=== PATIENT | male | born 2000 | race Caucasian/White ===

== ENCOUNTER 2019-05-08 10:32 | Emergency (ER) | payer OTHER ==
[2019-05-08 11:01] LABS: BASOPHILS # (AUTO) 0.1 10^3/uL (0.0-0.1); BASOPHILS % (AUTO) 0.7 %; EOSINOPHILS % (AUTO) 0.3 %; HGB - HEMOGLOBIN 15.3 g/dL (14.0-18.0); LYMPHOCYTES # (AUTO) 1.5 10^3/uL (1.5-3.5); LYMPHOCYTES % (AUTO) 21.9 %; MEAN CORPUSCULAR HEMOGLOBIN 28.9 pg (27.0-31.0); MEAN CORPUSCULAR VOLUME 87.5 fL (80.0-94.0); MEAN PLATELET VOLUME 9.7 fL (7.4-11.4); MONOCYTES # (AUTO) 0.4 10^3/uL (0.0-1.0); MONOCYTES % (AUTO) 6.3 %; NEUTROPHILS # (AUTO) 4.7 10^3/uL (1.5-6.6); NEUTROPHILS % (AUTO) 70.5 %; PLT - PLATELET COUNT 232 10^3/uL (130-450); RED CELL DISTRIBUTION WIDTH 13.3 % (12.0-15.0); WHITE BLOOD COUNT 6.7 x10^3/uL (4.8-10.8)
[2019-05-08 11:07] LABS: BILIRUBIN,URINE NEGATIVE (NEGATIVE); GLUCOSE, URINE (UA) NEGATIVE (NEGATIVE); KETONES,URINE (UA) NEGATIVE (NEGATIVE); LEUKOCYTE ESTERASE, URINE NEGATIVE (NEGATIVE); NITRITE,URINE NEGATIVE (NEGATIVE); OCCULT BLOOD,URINE MODERATE (NEGATIVE); PH,URINE 7.5 PH (5.0-7.5); PROTEIN,URINE NEGATIVE (NEGATIVE); UROBILINOGEN,URINE 0.2 (NORMAL) E.U./dL (NORMAL)
[2019-05-08 11:09] LABS: CLARITY,URINE CLEAR (CLEAR)
[2019-05-08 11:14] LABS: ALBUMIN 4.8 g/dL (3.2-5.5); ALBUMIN/GLOBULIN RATIO 1.8 (1.0-2.2); BILIRUBIN,TOTAL 1.1 mg/dL (0.2-1.0); CALCIUM 9.6 mg/dL (8.5-10.3); CREATININE 0.9 mg/dL (0.6-1.2); TOTAL PROTEIN 7.4 g/dL (6.7-8.2)
[2019-05-08 11:28] LABS: BACTERIA,URINE None Seen /HPF (None Seen); SQUAMOUS EPITHELIAL CELL,UR NONE SEEN (<= Few)
--- NOTE | 2019-05-08 11:32 | ED Physician Documentation ---
PD HPI ABD PAIN - Stated complaint Stated Complaint: BACK/ABD PX - Chief complaint Chief Complaint: Abd Pain - History obtained from History obtained from: Patient - History of Present Illness Timing - onset: Today (Sudden onset right-sided abdominal pain starting at 9 AM today. [place] [facility] [employer] [facility], I guess he had an x-ray showing potentially a kidney stone, he is never had one before. They wanted him to have a CT. His pain is minimal now. No history of abdominal surgeries. No urinary complaints. No nausea or vomiting.) Review of Systems Constitutional: denies: Fever, Chills Cardiac: denies: Chest pain / pressure, Palpitations Respiratory: denies: Dyspnea, Cough PD PAST MEDICAL HISTORY - Allergies Allergies/Adverse Reactions: Allergies Allergy/AdvReac Type Severity Reaction Status Date / Time No Known Drug Allergies Allergy Verified 05/08/19 10:54 PD ED PE NORMAL - Vitals Vital signs reviewed: Yes - General General: Alert and oriented X 3, No acute distress - Abdomen Abdomen: Normal bowel sounds, Soft, Non tender - Back Back: No CVA TTP, No spinal TTP - Neuro Neuro: Alert and oriented X 3, Normal speech Results - Vitals Vitals: Vital Signs - 24 hr 05/08/19 05/08/19 10:46 11:52 Temperature 36.8 C 36.7 C Heart Rate 67 78 Respiratory 17 16 Rate Blood Pressure 130/71 122/73 O2 Saturation 100 98 Oxygen O2 Source Room air - Labs Labs: Laboratory Tests 05/08/19 05/08/19 05/08/19 10:50 10:52 10:52 WBC 6.7 RBC 5.30 Hgb 15.3 Hct 46.4 MCV 87.5 MCH 28.9 MCHC 33.0 RDW 13.3 Plt Count 232 MPV 9.7 Neut # (Auto) 4.7 Lymph # (Auto) 1.5 [place] # (Auto) 0.4 Eos # (Auto) 0.0 Baso # (Auto) 0.1 Absolute Nucleated RBC 0.00 Nucleated RBC % 0.0 Sodium 137 Potassium 3.9 Chloride 101 Carbon Dioxide 27 Anion Gap 9.0 BUN 11 Creatinine 0.9 Estimated GFR (MDRD) 109 Glucose 102 H Calcium 9.6 Total Bilirubin 1.1 H AST 23 ALT 16 Alkaline Phosphatase 93 Total Protein 7.4 Albumin 4.8 Globulin 2.6 Albumin/Globulin Ratio 1.8 Lipase 31 Urine Color LT. YELLOW Urine Clarity CLEAR Urine pH 7.5 Ur Specific [place] 1.015 Urine Protein NEGATIVE Urine Glucose (UA) NEGATIVE Urine Ketones NEGATIVE Urine Occult Blood MODERATE H Urine Nitrite NEGATIVE Urine Bilirubin NEGATIVE Urine Urobilinogen 0.2 (NORMAL) Ur Leukocyte Esterase NEGATIVE Urine RBC 11-25 H Urine WBC 0-3 Ur Squamous Epith Cells NONE SEEN Urine Bacteria None Seen Ur Microscopic Review INDICATED Urine Culture Comments NOT INDICATED - Rads (name of study) ct kub Radiology: EMP read contemporaneously (4 x 6 right mid uretral stone) PD MEDICAL DECISION MAKING - ED course ED course: 18-year-old with acute pain consistent with renal colic [place], this was done and confirmatory. They already given him prescriptions for Flomax and Percocet. Departure - Departure Disposition: 01 Home, Self Care Clinical Impression: Renal colic Condition: Good Record reviewed to determine appropriate education?: Yes Instructions: ED Stone Renal W Colic Comments: Strain your urine as discussed. [place] with [place] copy of [place] CAT scan. The stone is 4 by 6 mm in the right mid ureter. He may want to send you to a urologist. Take the Flomax, and pain medications that they already prescribed you. Return if worse. Discharge Date/Time: 05/08/19 13:32
[2019-05-08 11:53] VITALS: BP 122/73
--- NOTE | 2019-05-08 13:03 | CT Report ---
Reason: flank oain, kidney stone suspected Procedure Date: 05/08/2019 Accession Number: [id number] / [id number] Procedure: CT - Abdomen/Pelvis WO CPT Code: Final Report FULL RESULT: EXAM: CT ABDOMEN AND PELVIS (CT KUB) EXAM DATE: 05/08/2019 11:27 AM. CLINICAL HISTORY: Flank oain, kidney stone suspected. COMPARISONS: None. TECHNIQUE: Routine axial helical CT imaging was performed through the abdomen and pelvis without IV contrast. Reconstructions: Coronal and sagittal. In accordance with CT protocol optimization, one or more of the following dose reduction techniques were utilized for this exam: automated exposure control, adjustment of mA and/or KV based on patient size, or use of iterative reconstructive technique. FINDINGS: Lung Bases: Unremarkable. Right Kidney/Ureter: Proximal ureteral stone measuring about 4 x 6 mm with minimal ureterectasis above this level, but no hydronephrosis at this time. Otherwise unremarkable. Left Kidney/Ureter: No stones, hydronephrosis, or hydroureter. No perinephric fat stranding. Other Solid Organs: Noncontrast images of the solid organs are grossly unremarkable. Gallbladder/Bile Ducts: Unremarkable. Peritoneal Cavity: No free fluid, free air or tre adenopathy. Bowel is grossly unremarkable. Pelvic Organs: No bladder stones or wall thickening. Noncontrast images of the visualized pelvic organs are unremarkable. Vasculature: Unremarkable. Other: None. IMPRESSION: Right proximal ureteral stone measuring about 4 x 6 mm, with minimal ureterectasis. RADIA
== END 2019-05-08 13:32 | disposition home or self-care (01) ==
LOC: ED 10:32
DX: N20.1 Calculus of ureter (principal)
CPT/HCPCS: 36415; 74176; 80053; 81001; 81003; 83690; 85025; 87086; 99283; 99284

== ENCOUNTER 2020-05-01 11:49 | Emergency (ER) | payer OTHER ==
--- NOTE | 2020-05-01 12:23 | ED Physician Documentation ---
History of Present Illness - Stated complaint Stated Complaint: SHEPHERD,WEAK - Chief complaint Chief Complaint: Neuro - Additonal information Additional information: 19-year-old male presents to the emergency department on the advice of [facility] to have Covid and mono testing. Patient reports that for 2 days he has had generalized myalgias, low-grade temperature elevation and 99 degrees and a headache. Denies any vision changes abdominal pain nausea or vomiting. He did recently travel about 3 weeks ago to [place]. He denies any cough congestion loss of taste or smell. He has no diarrhea. He otherwise feels well. Denies any pertinent past medical history Review of Systems Constitutional: reports: Fever, Myalgias Eyes: reports: Reviewed and negative Ears: reports: Reviewed and negative Nose: reports: Reviewed and negative Throat: reports: Reviewed and negative Cardiac: reports: Reviewed and negative Respiratory: reports: Reviewed and negative GI: denies: Abdominal Pain, Nausea, Vomiting : reports: Reviewed and negative Skin: reports: Reviewed and negative Musculoskeletal: reports: Reviewed and negative Neurologic: reports: Headache. denies: Generalized weakness, Near syncope, Syncope, Seizure, Confused Psychiatric: reports: Reviewed and negative PD PAST MEDICAL HISTORY - Past Medical History Cardiovascular: None Respiratory: None Neuro: None Endocrine/Autoimmune: None GI: None : None HEENT: None Psych: None Musculoskeletal: None Derm: None - Past Surgical History Past Surgical History: No - Present Medications Home Medications: Ambulatory Orders Medication Instructions Recorded Confirmed No Known Home Medications 05/01/20 05/01/20 - Allergies Allergies/Adverse Reactions: Allergies Allergy/AdvReac Type Severity Reaction Status Date / Time No Known Drug Allergies Allergy Verified 05/08/19 10:54 - Social History Does the pt smoke?: No Smoking Status: Never smoker Does the pt drink ETOH?: No Does the pt have substance abuse?: No - Immunizations Immunizations are current?: No - POLST Patient has POLST: No PD ED PE NORMAL - Neck Neck: Supple, no meningeal sign - Cardiac Cardiac: RRR, No murmur - Respiratory Respiratory: Clear bilaterally - Abdomen Abdomen: Normal bowel sounds, Soft, Non tender, Non distended - Back Back: No CVA TTP - Derm Derm: Normal color, Warm and dry, No rash - Neuro Neuro: Alert and oriented X 3, export agent 2-12 intact Eye Opening: Spontaneous Motor: Obeys Commands Verbal: Oriented GCS Score: 15 Results - Vitals Vitals: Vital Signs - 24 hr 05/01/20 11:54 Temperature 36.9 C Heart Rate 85 Respiratory 18 Rate Blood Pressure 117/73 O2 Saturation 98 Oxygen O2 Source Room air PD MEDICAL DECISION MAKING - ED course Complexity details: considered differential, d/w patient ED course: 19 year old male presents to the ed with 2 days of heache, myalgias and low- grade temperature elevation. [facility] is requesting COVID-19 screening as well as mononucleosis. Patient's vital signs are unremarkable. Clinical exam also unremarkable. Testing is pending. Patient advised to remain in quarantine until results are known. Emergent return precautions discussed Departure - Departure Disposition: Home, Self Care Clinical Impression: Myalgia Headache Qualifiers: Headache type: unspecified Intractability: not intractable Condition: Stable Record reviewed to determine appropriate education?: Yes Comments: You have a Covid test pending. You need to self quarantine until the result is done and negative. Do not leave your house. Do not get near anybody. The results should be done in 48 to 72 hours. We will call with a positive result, the fastest way to get a negative result for confirmation though is to go to the hospital website at [email or web address], click on the my [email or web address] tab and sign up for the patient portal. If any friends or family get sick and would like to have a Covid test done, but do not have signs or symptoms that would necessitate being hospitalized, we encourage testing through our coronavirus swabbing station, call [phone] to schedule an appointment. We are also testing you for mononucleosis. We will only call you if either of these results are positive. Assume that you are negative you do not hear otherwise. Please remain in quarantine until you have your COVID-19 test.
[2020-05-01 12:41] VITALS: BP 117/84
== END 2020-05-01 12:41 | disposition home or self-care (01) ==
LOC: ED 11:49
DX: R51.9 Headache, unspecified (principal); R50.9 Fever, unspecified; M79.10 Myalgia, unspecified site; Z20.822 Contact with and (suspected) exposure to COVID-19
CPT/HCPCS: 36415; 86308; 99283; 99284

== ENCOUNTER 2020-08-26 05:18 | Emergency (ER) | payer OTHER ==
--- NOTE | 2020-08-26 05:28 | ED Physician Documentation ---
PD HPI NVD - Stated complaint Stated Complaint: VOMITING - History obtained from History obtained from: Patient - History of Present Illness Timing - onset: Last night Timing - details: Gradual onset, Intermittant Pain level max: 0 Pain level now: 0 Associated symptoms: No: Fever, Abdominal pain, Hematemesis Improved by: Other (nothing) Worsened by: Other (no exacerbating symptoms) Similar symptoms before: Has not had sx before Recently seen: Not recently seen - Additonal information Additional information: c/o nausea and vomiting that started overnight. He says he went to sleep at approximately 10 PM but woke intermittently during the night due to nausea. He went to work at [employer] this morning and had emesis and was advised to come to ED for evaluation. Denies abdominal pain. Review of Systems Constitutional: denies: Fever, Chills, Sweats Cardiac: reports: Reviewed and negative Respiratory: reports: Reviewed and negative GI: reports: Nausea, Vomiting. denies: Abdominal Pain, Constipation, Diarrhea : denies: Dysuria, Frequency PD PAST MEDICAL HISTORY - Past Medical History Cardiovascular: None Respiratory: None Neuro: None Endocrine/Autoimmune: None GI: None : None HEENT: None Psych: None Musculoskeletal: None Derm: None - Past Surgical History Past Surgical History: No - Present Medications Home Medications: Ambulatory Orders Medication Instructions Recorded Confirmed Ondansetron Odt [Zofran] 4 mg TL Q6H PRN #10 tablet 08/26/20 - Allergies Allergies/Adverse Reactions: Allergies Allergy/AdvReac Type Severity Reaction Status Date / Time No Known Drug Allergies Allergy Verified 08/26/20 05:27 - Social History Does the pt smoke?: No Smoking Status: Never smoker Does the pt drink ETOH?: No Does the pt have substance abuse?: No - Immunizations Immunizations are current?: No - POLST Patient has POLST: No PD ED PE NORMAL - Vitals Vital signs reviewed: Yes - General General: Alert and oriented X 3, No acute distress, Well developed/nourished - HEENT HEENT: Moist mucous membranes - Cardiac Cardiac: RRR, No murmur - Respiratory Respiratory: No respiratory distress, Clear bilaterally - Abdomen Abdomen: Normal bowel sounds, Soft, Non tender, Non distended, No organomegaly Results - Vitals Vitals: Oxygen O2 Source Room air - Labs Labs: Laboratory Tests 08/26/20 08/26/20 05:46 05:46 WBC 4.0 L RBC 5.11 Hgb 14.7 Hct 43.8 MCV 85.7 MCH 28.8 MCHC 33.6 RDW 13.2 Plt Count 204 MPV 9.1 Neut # (Auto) 1.9 Lymph # (Auto) 1.6 [place] # (Auto) 0.4 Eos # (Auto) 0.1 Baso # (Auto) 0.0 Absolute Nucleated RBC 0.00 Nucleated RBC % 0.0 Sodium 139 Potassium 3.9 Chloride 106 Carbon Dioxide 26 Anion Gap 7.0 BUN 15 Creatinine 1.0 Estimated GFR (MDRD) 94 Glucose 103 H Calcium 9.4 Total Bilirubin 0.8 AST 24 ALT 18 Alkaline Phosphatase 88 Total Protein 7.1 Albumin 4.5 Globulin 2.6 Albumin/Globulin Ratio 1.7 Lipase 28 PD MEDICAL DECISION MAKING - ED course Complexity details: reviewed results, re-evaluated patient, considered differential, d/w patient ED course: unremarkable blood tests and benign abdominal exam. On reevaluation he reports resolution of his nausea after TL zofran. Results reviewed with patient prior to discharge Departure - Departure Disposition: 01 Home, Self Care Clinical Impression: Vomiting Qualifiers: Vomiting type: unspecified Vomiting Intractability: non-intractable Nausea presence: with nausea Qualified Code(s): R11.2 - Nausea with vomiting, unspecified Condition: Good Instructions: ED Nausea Vomiting Follow-Up: DAVI Diallo [Provider Group] Prescriptions: Ondansetron Odt [Zofran] 4 mg TL Q6H PRN #10 tablet PRN Reason: Nausea / Vomiting Forms: Activity restrictions Discharge Date/Time: 08/26/20 06:35
[2020-08-26] MEDS ORDERED: ONDANSETRON ODT 4 MG TABLET TL STA (05:37)
[2020-08-26 05:50] LABS: BASOPHILS % (AUTO) 0.5 %; EOSINOPHILS # (AUTO) 0.1 10^3/uL (0.0-0.7); EOSINOPHILS % (AUTO) 2.3 %; HCT - HEMATOCRIT 43.8 % (42.0-52.0); HGB - HEMOGLOBIN 14.7 g/dL (14.0-18.0); LYMPHOCYTES # (AUTO) 1.6 10^3/uL (1.5-3.5); LYMPHOCYTES % (AUTO) 39.6 %; MEAN CORPUSCULAR HEMOGLOBIN 28.8 pg (27.0-31.0); MEAN CORPUSCULAR HGB CONC 33.6 g/dL (32.0-36.0); MEAN CORPUSCULAR VOLUME 85.7 fL (80.0-94.0); MEAN PLATELET VOLUME 9.1 fL (7.4-11.4); MONOCYTES # (AUTO) 0.4 10^3/uL (0.0-1.0); MONOCYTES % (AUTO) 10.8 %; NEUTROPHILS # (AUTO) 1.9 10^3/uL (1.5-6.6); NEUTROPHILS % (AUTO) 46.5 %; PLT - PLATELET COUNT 204 10^3/uL (130-450); RED BLOOD COUNT 5.11 10^6/uL (4.70-6.10); RED CELL DISTRIBUTION WIDTH 13.2 % (12.0-15.0)
[2020-08-26] MEDS ORDERED: LORazepam 2 MG/ML VIAL IVP STA (05:56)
[2020-08-26 06:04] LABS: ALBUMIN 4.5 g/dL (3.2-5.5); ALBUMIN/GLOBULIN RATIO 1.7 (1.0-2.2); BILIRUBIN,TOTAL 0.8 mg/dL (0.2-1.0); CALCIUM 9.4 mg/dL (8.5-10.3); POTASSIUM 3.9 mmol/L (3.5-5.0); TOTAL PROTEIN 7.1 g/dL (6.7-8.2)
[2020-08-26 06:27] VITALS: BP 115/62
== END 2020-08-26 06:35 | disposition home or self-care (01) ==
LOC: ED 05:18
DX: R11.2 Nausea with vomiting, unspecified (principal)
CPT/HCPCS: 36415; 80053; 83690; 85025; 99283; Q0162